=== PATIENT | female | born 1965 | race African-American/Black ===

== ENCOUNTER 2017-10-14 12:12 | Emergency (ER) | payer OTHER ==
[2017-10-14 13:00] LABS: INFLUENZA A PATIENT POSITIVE (NEGATIVE); INFLUENZA B PATIENT NEGATIVE (NEGATIVE); OBC FLU VALID
[2017-10-14] MEDS: IBUPROFEN 800 MG TABLET. PO (13:09)
== END 2017-10-14 13:11 | disposition home or self-care (01) ==
LOC: ER 12:12
DX: J09.X2 Influenza due to identified novel influenza A virus with other respiratory manifestations (principal); I10 Essential (primary) hypertension
CPT/HCPCS: 87804; 87804-59; 99284